=== PATIENT | female | born 1995 | race Two or more races ===

== ENCOUNTER 2016-03-25 22:38 | Emergency (ER) | payer SELFPAY ==
[~2016-03-25] VITALS: Ht 157.5 cm; Wt 57.7 kg
[2016-03-25 22:56] VITALS: BP 135/87
== END 2016-03-26 00:12 | disposition left against medical advice (07) ==
LOC: EME 22:38
DX: R53.1 Weakness (principal); R05 Cough; R07.9 Chest pain, unspecified; Z53.21 Procedure and treatment not carried out due to patient leaving prior to being seen by health care provider